=== PATIENT | female | born 1990 | race Caucasian/White ===

== ENCOUNTER → 2020-07-26 09:49 | Outpatient (CLI) | payer OTHER, MEDICAID, SELFPAY ==
--- NOTE | 2020-07-26 | DI.MRI.S_ITS ---
PROCEDURE: MR THORACIC SPINE WO CON INDICATIONS: Wedge compression fracture of unspecified thoracic vertebra, TECHNIQUE: Noncontrast sagittal T1 spine echo and T2 fast spin echo, sagittal STIR, axial T1 and T2 fast spin echo through the thoracic spine. COMPARISON: None. FINDINGS: Image quality: Excellent. Alignment and Curvature: There is normal bony alignment. Bone Marrow: Loss of height noted in the anterior column of the T5 vertebral body compatible with reported compression fracture. There is decreased T1 and subtly increased T2 signal within the marrow space of the T5 vertebral body indicating compression fractures acute/subacute. T5 compression fracture results in approximately 70-80% loss of normal anterior vertebral body height. No retropulsed fragments are associated with the T5 compression fracture. There is approximately 27? of kyphosis associated T5 compression fracture. Spinal Cord: Visualized spinal cord is normal in size and signal. Paraspinous Soft Tissues: No paravertebral masses. Miscellaneous: On axial images, central canal and foramina appear widely patent at all scanned levels. IMPRESSION: Acute/subacute T5 compression fracture which results in approximately 70-80% loss of normal anterior vertebral body height. Dictated by: Amy Pendleton MD, PhD on 07/28/2020 at 11:38 Approved by: Amy Pendleton MD, PhD on 07/28/2020 at 11:54
== END ==
PROVIDERS: Referring Provider Physical Medicine & Rehabilitation; Visit Provider Physical Medicine & Rehabilitation
DX: S22.050A Wedge compression fracture of T5-T6 vertebra, initial encounter for closed fracture (principal); X58.XXXA Exposure to other specified factors, initial encounter
CPT/HCPCS: 72146

== ENCOUNTER → 2021-09-11 13:04 | Outpatient (CLI) | payer OTHER, MEDICAID, SELFPAY | PROVIDERS: PCP Physician Assistant; Visit Provider Physician Assistant Medical | DX: R30.0 Dysuria (principal) | CPT/HCPCS: 87086 ==

== ENCOUNTER → 2021-09-14 15:31 | Outpatient (CLI) | payer OTHER, MEDICAID, SELFPAY ==
[2021-09-18 03:10] LABS: Chlamydia trachomatis NAA Negative (Negative); Neisseria gonorrhoeae NAA Negative (Negative)
== END ==
PROVIDERS: PCP Physician Assistant; Visit Provider Physician Assistant Medical
DX: R10.2 Pelvic and perineal pain (principal); N39.0 Urinary tract infection, site not specified
CPT/HCPCS: 87491; 87591

== ENCOUNTER → 2021-11-23 10:11 | Outpatient (CLI) | payer OTHER, MEDICAID, SELFPAY ==
[2021-11-23 10:41] LABS: COVID19 -Nasal RAPID Negative (Negative)
== END ==
PROVIDERS: PCP Physician Assistant; Visit Provider Obstetrics & Gynecology
DX: Z01.812 Encounter for preprocedural laboratory examination (principal); Z20.822 Contact with and (suspected) exposure to COVID-19
CPT/HCPCS: 87635

== ENCOUNTER 2021-11-23 10:39 | Day surgery (SDC) | payer OTHER, MEDICAID, SELFPAY ==
[2021-11-18 14:42] VITALS: BMI 19.5
[2021-11-23] VITALS (8 sets, daily range): BP systolic 108–133; BP diastolic 63–87; PULSE 16–90; RESP 12–19; TEMP 36.6–36.9; O2SAT 98–100; BMI 19.5
[2021-11-23] MEDS: LACTATED RINGERS 1,000 ML 100 ML IV (10:53)
--- NOTE | 2021-11-23 11:50 | PM.HP.1 ---
History of Present Illness History of Present Illness Date Patient Seen: 11/23/21 Time Patient Seen: 11:51 Chief complaint: SDC Narrative: Patient is a 30-year-old 0 who presents with pelvic pain and polycystic ovaries. Patient History Medical History (Updated 11/18/21 @ 14:53 by Mary Jo Benavides RN) Depression Family & Social History Tobacco & Substance use: Tobacco type cigarettes Smoking Status Current some day smoker alcohol intake never Substance Use Type marijuana Meds Home Medications and Allergies Home Medications Medication Instructions Recorded Confirmed Type No Known Home Medications 11/23/21 11/23/21 History Allergies Allergy/AdvReac Type Severity Reaction Status Date / Time No Known Drug Allergies Allergy Verified 11/23/21 10:53 Exam Vital Signs (past 8 hours): - 11/23/21 11:03 Temperature 98.4 F Pulse Rate 63 Respiratory Rate 18 Blood Pressure 122/79 Pulse Oximetry 99 Oxygen Delivery Method Room Air Oxygen Delivery Method Room Air Narrative Exam Narrative: HEENT: No thyromegaly, no anterior cervical or supraclavicular lymphadenopathy. Lungs:Clear to auscultation bilaterally, no wheezes. Cardiovascular: Regular rate and rhythm, no murmurs, rubs, or gallops. Abdomen: No scars. No hepatosplenomegaly. No masses palpable. External genitalia: Normal Vagina: Normal Cervix: Normal Bimanual exam: 6 Week size uterus. Mobile. Bilateral uterosacral tenderness. No adnexal masses or tenderness Extremities: No edema. Assessment & Plan Assessment & Plan narrative: Assessment: 30-year-old 0 with polycystic ovaries and pelvic pain Bilateral uterosacral tenderness Plan: Diagnostic laparoscopy with possible lysis of adhesions verses fulguration of endometriosis The risks, benefits, and alternatives to the procedure were explained to the patient. The risks including bleeding, infection, injury to the bowel, bladder, or ureters. She understands these risks and agrees to proceed. A full par Q was held and consent form was signed. COVID-19 COVID-19 status: Negative Result date/Date tested (Pos, Neg/Pending): 11/23/21 Time Spent With Patient Time with patient: less than 30 minutes Critical Care time: I spent a total of [] minutes of critical care time on this patient's care today; this time is exclusive of procedural time.
--- NOTE | 2021-11-23 11:53 | PM.PREOP ---
Pre-operative Note COVID-19 COVID-19 status: Negative Result date/Date tested (Pos, Neg/Pending): 11/23/21 Criteria for continued procedure: Non-surgical alternatives not available or appropriate per current SOC Interval Note History & Physical reviewed/Exam performed by Physician: Yes Changes to H&P: No H&P completed within 30 days and has changed as indicated here:: 11/23/21
[2021-11-23] MEDS: BUPIVACAINE 0.5% (PF) 30 ML, EPINEPHrine 0.15 MG INJ (12:40)
--- NOTE | 2021-11-23 12:44 | SUR.OPER ---
Lithotomy on padded OR bed, head on pillow, arms secured on padded arm boards at <90 degrees abduction. Legs secured in padded yellow fins stirrups. POSITION APPROVED BY SURGEON AND ANESTHESIA
--- NOTE | 2021-11-23 13:42 | P.OP_ITS ---
Operative Date/Time/Diagnoses Date of procedure: 11/23/21 Time of procedure: 13:43 Pre-op diagnosis: Pelvic pain History of polycystic ovary Post-op diagnosis: same Procedure & Clinicians Procedure: Procedures Operation Date: 11/23/21 11:45 Actual Procedure Side Surgeon p Laparoscopy, Diagnostic, possible lysis of adhesions Christina Ye MD Indications: Pelvic pain History of polycystic ovary Surgeon: Christina Ye Anesthesia Type: General and Local Operative Notes Findings: Normal uterus, tubes, and ovaries Normal liver and gallbladder Normal appendix No evidence of endometriosis in the anterior or posterior cul-de-sac. No evidence of endometriosis on the uterus, tubes, or ovaries No evidence of endometriosis in the ovarian fossa Closure Type: primary Specimen(s): none Estimated blood loss (mL): 5 Blood products transfused: none Procedure in detail: After informed consent was obtained, the patient was taken to the operating room where she was placed in the dorsal supine position. After adequate general endotracheal anesthesia was achieved, she was placed in the dorsal lithotomy position, and prepped and draped in the usual sterile fashion. A time-out was performed. A bivalve speculum was placed into the vagina and the anterior lip of the cervix was grasped with a single-tooth tenaculum. The cervical os was sequentially dilated until the Zumi uterine manipulator could pass easily into the endometrial cavity. The single-tooth tenaculum was removed from the anterior lip of the cervix. The bivalve speculum was removed from the vagina. Attention was then turned to the abdomen where 6 cc of 0.5% Marcaine with epinephrine were injected in the umbilical fold. A 5 mm incision was made. The Veress needle was placed into the peritoneal cavity, and its placement confirmed by aspiration and drop test. The abdominal cavity was insufflated with 3 L of CO2. The Veress needle was removed, and a 5 mm trocar was placed without difficulty. A second incision was made on the left side 4 cm lateral to the umbilicus after 6 cc of 0.5% Marcaine with epinephrine were injected. A second 5 mm incision was made under direct visualization. The probe was placed through the lateral incision. Both ovaries were identified. The tubes were observed. The anterior and posterior cul-de-sacs were observed. The gallbladder, liver, and appendix were observed. There was no evidence of endometriosis. The ins truments were removed from the abdomen. The CO2 was allowed to escape. The incisions were repaired with 4-0 Monocryl in a subcuticular fashion. Steri- Strips and Allevyn dressings were placed. The Zumi uterine manipulator was removed from the uterus. Sponge, lap, and instrument counts were correct x2. The patient tolerated the procedure well, and was taken to PACU in stable condition. Complications: none Post-operative Condition: stable Disposition: PACU Plan for aftercare: Home after recovery
--- NOTE | 2021-11-23 14:27 | SUR.PHASEII ---
Incentive Spirometer up to 200ml done with teaching.
== END 2021-11-23 14:25 | disposition home or self-care (01) ==
PROVIDERS: PCP Physician Assistant; Referring Provider Obstetrics & Gynecology; Visit Provider Obstetrics & Gynecology
PROC: (CPT 49320; principal; 2021-11-23 11:45)
DX: R10.2 Pelvic and perineal pain (principal); E28.2 Polycystic ovarian syndrome; F17.210 Nicotine dependence, cigarettes, uncomplicated; Z20.822 Contact with and (suspected) exposure to COVID-19
CPT/HCPCS: 49320; 87635; C9803; J0171; J1100; J1885; J2250; J2405; J2704; J3010

== ENCOUNTER → 2021-11-28 10:49 | Outpatient (CLI) | payer OTHER, MEDICAID, SELFPAY ==
[2021-11-28 11:30] LABS: Appearance Urine UA CLEAR; Bilirubin Urine UA NEGATIVE (NEGATIVE); Color Urine UA YELLOW; Glucose Urine UA NEGATIVE (Negative); Ketones Urine UA NEGATIVE (NEGATIVE); Leukocyte Esterase Urine UA TRACE (NEGATIVE); Nitrite Urine UA NEGATIVE (Negative); Occult Blood Urine UA TRACE-LYSED (Negative); Protein Urine UA TRACE (Negative); Specific Gravity Urine UA >=1.030 (1.000-1.035); Urobilinogen Urine UA 0.2 E.U./dL (0.2)
[2021-11-28 11:52] LABS: Bacteria Urine None Seen; RBC Urine 0-1/HPF (0-5/HPF); Squamous Epithelial Cell Urine 0-1 /HPF (0-5/HPF); WBC Urine 0-1/HPF (0-5/HPF)
[2021-11-28 11:53] LABS: Culture Indicated Urine Specimen Cultured; Mucus Urine 1+ (Negative)
== END ==
PROVIDERS: PCP Physician Assistant; Referring Provider Obstetrics & Gynecology; Visit Provider Obstetrics & Gynecology
DX: N39.0 Urinary tract infection, site not specified (principal)
CPT/HCPCS: 81003; 81015; 87086

== ENCOUNTER → 2022-05-28 10:39 | Outpatient (CLI) | payer OTHER, MEDICAID, SELFPAY | PROVIDERS: PCP Physician Assistant; Visit Provider Physician Assistant Medical | DX: N39.0 Urinary tract infection, site not specified (principal); R10.2 Pelvic and perineal pain | CPT/HCPCS: 81002; 87086 ==

== ENCOUNTER → 2022-06-21 15:53 | Outpatient (CLI) | payer OTHER, MEDICAID, SELFPAY | PROVIDERS: PCP Physician Assistant; Visit Provider Nurse Practitioner Adult Health | DX: R10.2 Pelvic and perineal pain (principal) | CPT/HCPCS: 81002; 87491; 87563; 87591; 87661 ==

== ENCOUNTER 2024-11-08 11:35 | Day surgery (SDC) | payer OTHER, SELFPAY ==
[2024-10-26 12:03] VITALS: BMI 20.9
--- NOTE | 2024-11-08 | PATH_ITS ---
[facility] Accession Number: [id number] No. of containers..03 Tissue . 01 Material submitted: . PART A: ectocervix - ANTERIOR LIP OF CERVIX SUTURE AT 12' PART B: ectocervix - POSTERIOR LIP OF ECTOCERVIX SHORT SUTURE AT 6' PART C: endocervix - ENDOCERVIX . 01 Diagnosis: A. CERVIX, ANTERIOR LIP, LEEP: High-grade squamous intraepithelial lesion (LAURENCE 2-3), focally present at inked margin, see comment. Negative for invasive carcinoma. . B. CERVIX, POSTERIOR LIP, LEEP: High-grade squamous intraepithelial lesion (LAURENCE 2-3). Background low-grade squamous intraepithelial lesion (LAURENCE-1) also present. Inked margins free from lesional tissue. Negative for invasive carcinoma. . C. ENDOCERVIX, CONIZATION: Histologically unremarkble endocervical mucosa. Negative for glandular lesions and invasive carcinoma. [facility] 11/15/2024 1041 Local . 01 Comment: Sections from the anterior lip of the cervix show that the high-grade intraepithelial lesion focally involves the inked 12 o'clock margin on the 3 o'clock half of the specimen. . Immunohistochemistry for p16 is performed with adequate controls on blocks A1, A2, B1, B2, C1, C2, and C3. Blocks A1, A2, B1, and B2 are positive. Blocks C1, C2, and C3 are negative. . * This test was developed and the performance characteristics were validated by [facility]. It has not been cleared or approved by the U.S. Food and Drug Administration. . 01 Electronically signed: . Mariam Guaman DO, Pathologist NPI- [id number] . 01 Gross description: . A. Received in formalin with two identifiers and anterior lip of ectocervix, is an oriented linear fragment of cervix with a suture at one edge designating 12 o'clock per the requisition, and measuring 1.5 cm from 12-6, 2.1 cm from 3-9, and 0.4 cm thick. The ectocervix is bowden and finely granular. The 12 o'clock half is inked blue while the 6 o'clock half is inked orange, and the specimen is serially sectioned and submitted entirely as follows: A1: 3 o'clock half. A2: 9 o'clock half. B. Received in formalin with two identifiers and posterior lip of ectocervix, is an oriented linear fragment of cervix with a short suture at one edge designating 6 o'clock per the requisition and measuring 1.6 cm from 12-6, 3.0 cm from 3-9, and 0.5 cm thick with bowden, finely granular ectocervix. The 12 o'clock half of the specimen is inked orange while the 6 o'clock half of the specimen is inked blue. The specimen is serially sectioned and submitted entirely as follows: B1: 3 o'clock half. B2: 9 o'clock half. See diagram. C. Received in formalin with two identifiers and endocervix, is an unoriented circular fragment of cervix measuring 2.0 x 1.5 x 0.8 cm. The os is slit-like and measures 1.0 cm in diameter. The concave surface is inked black while the convex surface is inked orange at the endocervical margin, and the remaining convex surface is inked blue. The specimen is radially sectioned and submitted entirely in sequential quadrants in C1-C4. ([id number]) /MRV 11/09/2024 1813 Local . 01 Pathologist provided ICD-10: R87.611 . 01 CPT . 787104, 990510, 186969, [id number] Specimen Comment: A courtesy copy of this report has been sent to [phone] Performed at: [address] [id number] MD Cuauhtemoc Briseno MD Phone: [phone]
[2024-11-08 12:14] VITALS: BMI 20.9
[2024-11-08] MEDS: FAMOTIDINE 20 MG/2 ML VIAL IV (12:28)
[2024-11-08] MEDS: LACTATED RINGERS 1,000 ML 21 ML IV (12:28)
[2024-11-08] MEDS: ACETAMINOPHEN IV 1,000 MG/100 ML VIAL 400 MG IV (12:28)
--- NOTE | 2024-11-08 13:47 | PM.GYNHP.1 ---
History of Present Illness History of Present Illness Narrative: Cheryl Del Angel is a 33 year old female 0 with LAURENCE 1 of the ectocervix and can not rule out high-grade of the endocervix. These were based on colposcopic biopsies. She is here for a LEEP cone biopsy of the cervix. [facility] Medical History (Updated 10/26/24 @ 12:01 by Malena Carroll, RN) Gender dysphoria LAURENCE III (cervical intraepithelial neoplasia grade III) with severe dysplasia Pap smear of cervix with ASCUS, cannot exclude HGSIL ASCUS with positive high risk HPV Depression Surgical History (Updated 10/26/24 @ 12:12 by Malena Carroll RN) Hx of laparoscopy Social History household members: spouse Smoking Status: Former smoker alcohol intake: never Meds Home Medications and Allergies Home Medications ?Medication ?Instructions ?Recorded ?Confirmed ?Type albuterol sulfate 90 mcg/actuation See Rx Instructions inhalation Q6H 08/29/24 09/26/24 Rx aerosol inhaler (Ventolin HFA) PRN shortness of breath or wheezing #8.5 grams Allergies Allergy/AdvReac Type Severity Reaction Status Date / Time No Known Drug Allergies Allergy Verified 11/08/24 12:01 Exam Narrative Exam Narrative: HEENT: No thyromegaly, no anterior cervical or supraclavicular lymphadenopathy. Lungs:Clear to auscultation bilaterally, no wheezes. Cardiovascular: Regular rate and rhythm, no murmurs, rubs, or gallops. Abdomen: Well-healed laparoscopy scars. No hepatosplenomegaly. No masses palpable. External genitalia: Normal Vagina: Normal Cervix: Normal Bimanual exam: 6 Week size anteverted uterus. Mobile. Extremities: No edema Assessment & Plan Assessment & Plan narrative: Assessment: 33-year-old 0 with LAURENCE 1 of the ectocervix and can not rule out high-grade of the endocervix by colposcopic biopsies Plan: LEEP cone biopsy of the cervix The risks, benefits, and alternatives to the procedure were explained to the patient. The risks including bleeding and infection. She understands these risks and agrees to proceed. A full par Q was held and consent form was signed. Time-Based Coding :: [TOTAL MINUTES] spent with patient and on the chart (including review of chart, obtaining history, exam, reviewing outside data, placing orders, documenting exam and treatment plan, and counseling patient) on [DATE].
--- NOTE | 2024-11-08 13:50 | PM.PREOP ---
Pre-operative Note Interval Note History & Physical reviewed/Exam performed by Physician: Yes Changes to H&P: No H&P completed within 30 days and has changed as indicated here:: 11/08/24
--- NOTE | 2024-11-08 14:14 | SUR.OPER ---
Lithotomy on padded OR bed, head on pillow, arms secured on padded arm boards at <90 degrees abduction. Legs secured in padded yellow fins stirrups.
[2024-11-08] MEDS: POTASSIUM IODIDE/IODINE 473 ML SOLUTION TOP (14:31)
[2024-11-08 14:34] VITALS: BP 108/59; PULSE 71; RESP 12; TEMP 36.8; O2SAT 99
--- NOTE | 2024-11-08 14:34 | P.OP_ITS ---
Operative Date/Time/Diagnoses Date of procedure: 11/08/24 Time of procedure: 14:34 Pre-op diagnosis: LAURENCE 1 of the ectocervix Can not rule out high-grade of the endocervix Post-op diagnosis: same Procedure & Clinicians Procedure: Procedures Operation Date: 11/08/24 13:30 Actual Procedure Side Surgeon p LEEP cone biopsy of cervix Christina Ye MD Indications: 33-year-old 0 with LAURENCE 1 by colposcopic biopsy of the ectocervix, and can not rule out high-grade JULIÁN of the endocervix Surgeon: Christina Ye Anesthesia Type: General (LMA) Operative Notes Findings: Lugol's light surrounding the cervical os Closure Type: not applicable Specimen(s): other (Anterior lip of the cervix with long suture at 12 o'clock, posterior lip of the cervix with short suture at 6 o'clock., endocervix) Applied: none Estimated blood loss (mL): 5 Blood products transfused: none Procedure in detail: After informed consent was obtained, the patient was taken to the operating room where she was placed in the dorsal supine position. All personnel were wearing 3 mm masks. After adequate LMA general anesthesia was achieved, she was placed in the dorsal lithotomy position, and prepped and draped in the usual sterile f ashion. A time-out was performed. A plastic coated bivalve speculum was placed into the vagina. There were 3 sources of suction, the first was on the Bovie, the second was attached to the plastic coated speculum, and the third was a young shower along the left lateral sidewall close to the cervix. The cervix was coated with Lugol solution. There was a Lugol's light area surrounding the cervical os. Settings were 80 cut and 60 cautery on the Bovie. Using the 20 mm loop, the anterior lip of the cervix was excised. Using the same loop, the posterior lip of the cervix was excised. Using a 15 mm loop and endocervical excision was performed. The ball cautery was used for hemostasis. A long suture was placed on the anterior lip of the cervix. A short suture was placed on the posterior lip of the cervix. The endocervix was not tagged. The plastic coated bivalve speculum was removed from the vagina. Sponge, lap, and instrument counts were correct x2. The patient tolerated the procedure well, was taken to PACU in stable condition. Complications: none Post-operative Condition: stable Disposition: PACU Plan for aftercare: Home after recovery
[2024-11-08 14:38] VITALS: BP 97/62; PULSE 66; RESP 15; O2SAT 98
[2024-11-08 14:43] VITALS: BP 101/61; PULSE 64; RESP 13; O2SAT 98
[2024-11-08 14:48] VITALS: BP 103/54; PULSE 72; RESP 12; O2SAT 100
[2024-11-08 14:53] VITALS: BP 104/70; PULSE 68; RESP 19; O2SAT 100
[2024-11-08 14:59] VITALS: BP 110/66; PULSE 69; RESP 18; TEMP 36.9; O2SAT 100
== END 2024-11-08 15:20 | disposition home or self-care (01) ==
PROVIDERS: PCP Physician Assistant; Referring Provider Obstetrics & Gynecology; Visit Provider Obstetrics & Gynecology
PROC: 0UBC7ZZ Excision of Cervix, Via Natural or Artificial Opening (ICD-10-PCS; CPT 57522; principal; 2024-11-08 13:30)
DX: D06.9 Carcinoma in situ of cervix, unspecified (principal); Z87.891 Personal history of nicotine dependence
CPT/HCPCS: 57522; J0131; J0330; J1100; J1885; J2250; J2405; J2704; J3010